=== PATIENT | female | born 1940 | race African-American/Black ===

== ENCOUNTER 2018-04-12 08:19 | Inpatient (IN) | payer MEDICARE ==
[~2018-04-12] VITALS: Ht 180.3 cm; Wt 62.6 kg
[~2018-04-12 08:19] MED LIST: ASA5EC; FURO-151 PO; METO25TA3
[2018-04-12 09:15] LABS: HEMATOCRIT. 41.3 % (36.0-48.0); HEMOGLOBIN. 13.8 g/dL (12.0-16.0); MEAN CORPUSCULAR HEMOGLOBIN 32.7 pg (28.0-32.0); MEAN CORPUSCULAR VOLUME 97.7 fL (81.0-99.0); MEAN PLATELET VOLUME 8.4 fl (7.4-10.4); PLATELET 244 x1000/uL (130-400); RED BLOOD CELL COUNT 4.23 mill/uL (4.2-5.4); RED CELL DISTRIBUTION WIDTH 13.6 % (11.6-14.6)
[2018-04-12 09:21] LABS: CHLORIDE 98 mEq/L (98-107)
[2018-04-12 09:22] LABS: PROTHROMBIN TIME 10.5 sec (9.1-11.1)
[2018-04-12 09:30] LABS: CLARITY URINE CLEAR (CLEAR); COLOR URINE YELLOW (YELLOW); KETONES URINE TRACE (NEGATIVE); LEUKOCYTE ESTERASE URINE 1+ (NEGATIVE); NITRITE URINE NEGATIVE (NEGATIVE); OCCULT BLOOD URINE TRACE (NEGATIVE); PH URINE 6.5 (4.5-8.0); PROTEIN URINE TRACE (NEGATIVE); SPECIFIC GRAVITY URINE 1.015 (1.005-1.030)
[2018-04-12] MEDS ORDERED: POTASSIUM CHLORIDE 20MEQ/PACKET PO ONE (09:45)
[2018-04-12] MEDS ORDERED: KCL 20MEQ/100ML PREMIX 100 ML IV ONE (09:45)
[2018-04-12 10:46] LABS: PLATELET ESTIMATE NORMAL
[2018-04-12] MEDS ORDERED: BARIUM SULFATE 450ML ORAL SUSP ONE (10:47)
[2018-04-12] MEDS ORDERED: IOHEXOL-350 100 ML BOTTLE ONE (10:48)
[2018-04-12] MEDS ORDERED: CEFTRIAXONE 1 G PREMIX 50 ML IV ONE (12:45)
[2018-04-12] MEDS ORDERED: ASPIRIN 81MG TABLET PO ONE (12:45)
[2018-04-12 14:30] VITALS: BP 163/81
[2018-04-12] MEDS ORDERED: HYDROMORPHONE HCL/PF 2MG/ML CPJ IV PRN (14:30)
[2018-04-12] MEDS ORDERED: MAGNESIUM/ALUMINUM HYDROXIDE/SIMETHICONE 30ML UDC PO PRN (14:30)
[2018-04-12] MEDS ORDERED: ONDANSETRON HCL 4MG/2ML INJ IV PRN (14:30)
[2018-04-12] MEDS ORDERED: LORAZEPAM 2MG/ML CPJ IV PRN (14:30)
[2018-04-12] MEDS ORDERED: GUAIFENESIN 200MG/10ML SUGAR FREE UDC PO PRN (14:30)
[2018-04-12] MEDS ORDERED: DOCUSATE SODIUM 100MG CAPSULE PO PRN (14:30)
[2018-04-12] MEDS ORDERED: CLONIDINE 0.1MG TABLET PO PRN (14:30)
[2018-04-12] MEDS ORDERED: IPRATROPIUM/ALBUTEROL 0.5-3(2.5)MG/3ML NEB INH PRN (14:30)
[2018-04-12 14:45] VITALS: BP 163/81
[2018-04-12] MEDS ORDERED: HYDRALAZINE 20MG/ML VIAL IV PRN (14:45)
[2018-04-12] MEDS: HYDROCODONE/ACETAMINOPHEN 5/325MG TABLET PO PRN ×2 (14:55→22:59)
[2018-04-12] MEDS ORDERED: NIFE10CA MT (15:07)
[2018-04-12] MEDS ORDERED: GABA-531 MT (15:07)
[2018-04-12] MEDS ORDERED: LEVO75TA MT (15:07)
[2018-04-12] MEDS ORDERED: TRAM50TA3 MT (15:07)
[2018-04-12] MEDS ORDERED: BORT3.5V IJ (15:07)
[2018-04-12] MEDS ORDERED: LENA5CAP MT (15:07)
[2018-04-12] MEDS ORDERED: CHOL200074 MT (15:07)
[2018-04-12] MEDS ORDERED: MULT-379 MT (15:07)
[2018-04-12] MEDS ORDERED: LEVOFLOXACIN 500MG PREMIX 100 ML IV NR (16:00)
[2018-04-12] MEDS: ACETAMINOPHEN 325MG TABLET PO PRN (16:42)
[2018-04-12] MEDS: ENOXAPARIN 30MG/0.3ML SYR SUBCUT SCH (16:42)
[2018-04-12 16:54] VITALS: BP 150/81
[2018-04-12 20:00] VITALS: BP 120/63
[2018-04-12] MEDS: SODIUM CHLORIDE 0.9% INJ 3ML FLUSH IVF SCH (21:23)
[2018-04-13] VITALS: BP 134/68
[2018-04-13] MEDS: ACETAMINOPHEN 325MG TABLET PO PRN (00:10)
[2018-04-13 00:49] LABS: CREATINE KINASE 136 IU/L (26-192)
[2018-04-13 00:51] LABS: CREATINE KINASE MB FRACTION < 1.0 ng/mL (0.5-3.6)
[2018-04-13 04:00] VITALS: BP 129/69
[2018-04-13 06:28] LABS: HEMATOCRIT. 35.5 % (36.0-48.0); HEMOGLOBIN. 12.2 g/dL (12.0-16.0); MEAN CORPUSCULAR HEMOGLOBIN 33.3 pg (28.0-32.0); MEAN CORPUSCULAR VOLUME 97.2 fL (81.0-99.0); MEAN PLATELET VOLUME 8.6 fl (7.4-10.4); PLATELET 221 x1000/uL (130-400); RED BLOOD CELL COUNT 3.65 mill/uL (4.2-5.4); RED CELL DISTRIBUTION WIDTH 14.1 % (11.6-14.6)
[2018-04-13] MEDS: SODIUM CHLORIDE 0.9% INJ 3ML FLUSH IVF SCH ×3 (06:30→21:12)
[2018-04-13 06:46] LABS: CHLORIDE 106 mEq/L (98-107)
[2018-04-13 06:53] LABS: CREATINE KINASE 115 IU/L (26-192)
[2018-04-13 06:54] LABS: CREATINE KINASE MB FRACTION < 1.0 ng/mL (0.5-3.6)
[2018-04-13 06:55] LABS: LDL CHOLESTEROL 62 mg/dL (5-100)
[2018-04-13 06:57] LABS: HDL CHOLESTEROL 100 mg/dL (40-59)
[2018-04-13 08:00] VITALS: BP 130/64
[2018-04-13] MEDS: ASPIRIN 81MG EC TABLET PO SCH (08:52)
[2018-04-13] MEDS: HYDROCODONE/ACETAMINOPHEN 5/325MG TABLET PO PRN ×2 (08:55→17:18)
[2018-04-13] MEDS ORDERED: POTASSIUM CHLORIDE 20MEQ TABLET SR PO SCH (09:00)
[2018-04-13 11:46] LABS: PLATELET ESTIMATE NORMAL
[2018-04-13 12:00] VITALS: BP 136/61
[2018-04-13 16:00] VITALS: BP 135/63
[2018-04-13] MEDS: ENOXAPARIN 30MG/0.3ML SYR SUBCUT SCH (17:19)
[2018-04-13 20:00] VITALS: BP 128/64
[2018-04-14 00:05] VITALS: BP 128/68
[2018-04-14] MEDS: HYDROCODONE/ACETAMINOPHEN 5/325MG TABLET PO PRN (01:08)
[2018-04-14 04:00] VITALS: BP 140/95
[2018-04-14] MEDS: SODIUM CHLORIDE 0.9% INJ 3ML FLUSH IVF SCH (05:04)
[2018-04-14 06:46] LABS: HEMATOCRIT. 36.3 % (36.0-48.0); HEMOGLOBIN. 12.1 g/dL (12.0-16.0); MEAN CORPUSCULAR HEMOGLOBIN 32.7 pg (28.0-32.0); MEAN CORPUSCULAR VOLUME 97.9 fL (81.0-99.0); MEAN PLATELET VOLUME 8.8 fl (7.4-10.4); PHOSPHORUS 2.3 mg/dL (2.5-4.9); PLATELET 222 x1000/uL (130-400); RED BLOOD CELL COUNT 3.71 mill/uL (4.2-5.4); RED CELL DISTRIBUTION WIDTH 14.1 % (11.6-14.6)
[2018-04-14 08:00] VITALS: BP 144/70
[2018-04-14] MEDS: ASPIRIN 81MG EC TABLET PO SCH (08:28)
[2018-04-14 08:29] VITALS: BP 144/70
[2018-04-14] MEDS ORDERED: POTASSIUM PHOS,M-BASIC-D-BASIC 15 MMOL in DEXT 5% WATER 245 ML IV NR (11:00)
[2018-04-14] MEDS ORDERED: POTASSIUM CHLORIDE 20MEQ TABLET SR PO SCH (12:26)
[2018-04-14] MEDS ORDERED: LEVOFLOXACIN 250MG PREMIX 50 ML IV SCH ×2 (14:00→16:00)
[2018-04-14 14:20] LABS: PLATELET ESTIMATE NORMAL
== END 2018-04-14 15:38 | disposition home or self-care (01) | DRG 871 ==
LOC: ER 08:19 → 6WST 12:42 → EDBEDREQ 12:44 → ENRESERV 13:50
PROVIDERS: ADMIT Internal Medicine; ATTEND Internal Medicine
DX: A41.9 Sepsis, unspecified organism (principal); N17.0 Acute kidney failure with tubular necrosis; N39.0 Urinary tract infection, site not specified; E46 Unspecified protein-calorie malnutrition; Z68.1 Body mass index [BMI] 19.9 or less, adult; E87.6 Hypokalemia; E78.5 Hyperlipidemia, unspecified; N18.3 Chronic kidney disease, stage 3 (moderate); Z79.82 Long term (current) use of aspirin; I12.9 Hypertensive chronic kidney disease with stage 1 through stage 4 chronic kidney disease, or unspecified chronic kidney disease; E03.9 Hypothyroidism, unspecified; I25.10 Atherosclerotic heart disease of native coronary artery without angina pectoris; Z79.899 Other long term (current) drug therapy
CPT/HCPCS: 36415; 71045; 73521; 74174; 80048; 80061; 82550; 82553; 83735; 83880; 84100; 84439; 84443; 84484; 87077; 87186; 93005; 93306; 96365; 96367; 96372; 99291; J1170; J1650; J1956; J2405; J3480; J3490; J7050; J7060; Q9967